=== PATIENT | male | born 1985 | race Two or more races ===

== ENCOUNTER → 2020-01-27 10:32 | Outpatient (BNVA) | payer OTHER, SELFPAY | PROVIDERS: PCP Internal Medicine; Visit Provider Urology | DX: Z30.2 Encounter for sterilization (principal); F41.8 Other specified anxiety disorders | CPT/HCPCS: 55250 ==

== ENCOUNTER → 2020-02-09 15:29 | Outpatient (BNVA) | payer OTHER, SELFPAY | PROVIDERS: PCP Internal Medicine; Visit Provider Urology | DX: Z76.89 Persons encountering health services in other specified circumstances (principal) | CPT/HCPCS: 99212 ==

== ENCOUNTER 2020-04-24 10:13 | Emergency (ER) | payer OTHER, SELFPAY ==
[2020-04-24 10:58] VITALS: BP 158/95; PULSE 93; RESP 16; TEMP 36.2; O2SAT 100; BMI 28.5
== END 2020-04-24 18:37 | disposition left against medical advice (07) ==
PROVIDERS: Emergency Provider Emergency Medicine
DX: R42 Dizziness and giddiness (principal)
CPT/HCPCS: 99282; 99283

== ENCOUNTER 2020-09-18 08:10 | Outpatient (REF) | payer OTHER, SELFPAY ==
--- NOTE | ~2020-09-18 | XR_ITS ---
EXAMINATION: XR WRISTS, BILATERAL WRISTS XR CERVICAL SPINE CLINICAL INFORMATION: Pain COMPARISON: None TECHNIQUE: 4 views of each wrist and three-view cervical spine FINDINGS: 4 views of the left wrist do not demonstrate any evidence of acute fracture or dislocation. Joint spaces are maintained. No significant degenerative changes noted. No soft tissue swelling. 4 views of the right wrist do not demonstrate any evidence of acute fracture or dislocation. Joint spaces maintained. No erosive changes. Three-view cervical spine study does not demonstrate any abnormal prevertebral soft tissue swelling. No acute fractures identified. Disc spaces are maintained. There is minimal spurring seen at the C6 level. XR/XR wrist LT 2V IMPRESSION: No significant abnormality of either the right or left wrist identified. No significant cervical spine bony abnormality seen.
--- NOTE | ~2020-09-18 | XR_ITS ---
EXAMINATION: XR WRISTS, BILATERAL WRISTS XR CERVICAL SPINE CLINICAL INFORMATION: Pain COMPARISON: None TECHNIQUE: 4 views of each wrist and three-view cervical spine FINDINGS: 4 views of the left wrist do not demonstrate any evidence of acute fracture or dislocation. Joint spaces are maintained. No significant degenerative changes noted. No soft tissue swelling. 4 views of the right wrist do not demonstrate any evidence of acute fracture or dislocation. Joint spaces maintained. No erosive changes. Three-view cervical spine study does not demonstrate any abnormal prevertebral soft tissue swelling. No acute fractures identified. Disc spaces are maintained. There is minimal spurring seen at the C6 level. XR/XR wrist RT 2V IMPRESSION: No significant abnormality of either the right or left wrist identified. No significant cervical spine bony abnormality seen.
--- NOTE | ~2020-09-18 | XR_ITS ---
EXAMINATION: XR WRISTS, BILATERAL WRISTS XR CERVICAL SPINE CLINICAL INFORMATION: Pain COMPARISON: None TECHNIQUE: 4 views of each wrist and three-view cervical spine FINDINGS: 4 views of the left wrist do not demonstrate any evidence of acute fracture or dislocation. Joint spaces are maintained. No significant degenerative changes noted. No soft tissue swelling. 4 views of the right wrist do not demonstrate any evidence of acute fracture or dislocation. Joint spaces maintained. No erosive changes. Three-view cervical spine study does not demonstrate any abnormal prevertebral soft tissue swelling. No acute fractures identified. Disc spaces are maintained. There is minimal spurring seen at the C6 level. XR/XR cervical spine 2V IMPRESSION: No significant abnormality of either the right or left wrist identified. No significant cervical spine bony abnormality seen.
[2020-09-18 10:04] LABS: MANUAL DIFF FLAG NO
[2020-09-18 10:06] LABS: Basophils Percent Auto 0.4 % (0-2); Eosinophils Absolute Auto 0.2 X10*3/uL (0.0-0.4); Eosinophils Percent Auto 2.6 % (0-4); Hematocrit 42.3 % (42-52); Hemoglobin 13.8 g/dl (14.0-18.0); Imm Gran Abs Auto 0.02 X10*3/uL (0.00-0.03); Imm Gran Pct Auto 0.3 % (0.0-0.4); Lymphocytes Absolute Auto 2.1 X10*3/uL (1.2-4.9); Lymphocytes Percent Auto 27.6 % (20-40); Mean Corpuscular HGB Conc 32.6 g/dl (31.0-36.0); Mean Corpuscular Hemoglobin 29.8 pg (27.0-33.0); Mean Corpuscular Volume 91.4 fL (80-98); Mean Platelet Volume 11.1 fL (9.4-12.4); Monocytes Absolute Auto 0.5 X10*3/uL (0.1-1.2); Neutrophils Absolute Auto 4.8 X10*3/uL (2.0-8.3); Neutrophils Percent Auto 62.1 % (45-73); Platelet Count 283 X10*3/uL (160-400); Red Blood Count 4.63 X10*6/uL (4.60-5.80); Red Cell Distribution Width 13.1 % (11.0-16.0); White Blood Count 7.7 X10*3/uL (4.8-10.8)
[2020-09-18 10:30] LABS: Alanine Aminotransferase 22 U/L (0-40); Albumin Level 4.3 g/dL (3.5-5.0); Alkaline Phosphatase 103 U/L (39-117); Anion Gap 11 (12-20); Aspartate Amino Transferase 20 U/L (5-37); Blood Urea Nitrogen 8 mg/dL (9-16); C Reactive Protein 1.54 mg/dL (< or = 0.50); Calcium 9.8 mg/dL (8.4-10.2); Carbon Dioxide 28 mmol/L (22-29); Chloride 105 mmol/L (96-108); Estimated Glomerular Filt Rate > 60; Glucose Random 88 mg/dL (60-115); Potassium 3.9 mmol/L (3.3-5.1); Sodium 140 mmol/L (135-145); Total Protein 7.3 g/dL (6.5-8.0)
[2020-09-18 10:43] LABS: Thyroid Stimulating Hormone 1.86 uIU/mL (0.32-4.0)
[2020-09-18 10:49] LABS: Rheumatoid Factor < 15.0 IU/mL (<15.0)
[2020-09-18 11:23] LABS: Erythrocyte Sedimentation Rate 21 MM/HR (0-15)
[2020-09-20 08:57] LABS: Lyme Abs Screen <0.90 index
[2020-09-21 22:57] LABS: Cyclic Citrullinated Peptide <16 UNITS
[2020-09-26 14:01] LABS: Vitamin D 25-OH, D2 <4 ng/mL; Vitamin D 25-OH, D3 13 ng/mL; Vitamin D 25-OH, Total 13 ng/mL (30-100)
== END 2020-09-18 08:11 | disposition home or self-care (01) ==
LOC: HO.LAB 08:10
PROVIDERS: PCP Internal Medicine; Visit Provider Student in an Organized Health Care Education/Training Program
DX: M25.50 Pain in unspecified joint (principal); M51.36 Other intervertebral disc degeneration, lumbar region; Z88.8 Allergy status to other drugs, medicaments and biological substances; Z91.013 Allergy to seafood; Z87.891 Personal history of nicotine dependence; Z79.899 Other long term (current) drug therapy
CPT/HCPCS: 36415; 72040; 73100; 80053; 82306; 84443; 85025; 85652; 86140; 86200; 86431; 86617; 86618; 99202

== ENCOUNTER → 2020-10-24 14:12 | Outpatient (BNVA) | payer OTHER, SELFPAY | PROVIDERS: PCP Internal Medicine; Visit Provider Student in an Organized Health Care Education/Training Program | DX: M25.50 Pain in unspecified joint (principal); E55.9 Vitamin D deficiency, unspecified; R79.82 Elevated C-reactive protein (CRP) | CPT/HCPCS: 99212 ==

== ENCOUNTER 2021-01-05 16:13 | Emergency (ER) | payer OTHER, SELFPAY ==
[2021-01-05 17:05] VITALS: BP 160/80; PULSE 102; RESP 16; TEMP 36.6; O2SAT 100; BMI 26.3
--- NOTE | 2021-01-05 17:06 | ED.URI ---
HPI - URI/Sore Throat General Chief Complaint: General Medical Stated Complaint: Flu like symptoms Time Seen by Provider: 01/05/21 17:05 Source: patient Mode of arrival: ambulatory Limitations: no limitations History of Present Illness HPI Narrative: 35 y/o male with history of asthma, insomnia, chronic low back pain, chronic joint pain who presents to the ED c/o 2 days of headaches, body aches, sore throat and chills. He has a cough as well that is keeping him up at night. He is vaccinated against COVID-19. He has had no known COVID-19 exposures. MD elicited complaint: cough and sore throat Onset (ago): day(s) (2) Consistency: constant Severity: moderate Description of mucous: clear Able to tolerate fluids by mouth: Yes Exacerbating factors: nothing Relieving factors: OTC cold medicine Associated symptoms: chills, headache, nasal congestion, sore throat and cough Treatments prior to arrival: none Related Data Previous Rx's Medication Instructions Recorded albuterol sulfate 90 mcg/actuation 2 puff PO Q6H PRN 30 Days #6.7 g 02/13/20 aerosol inhaler epinephrine 0.3 mg/0.3 mL 0.3 mg IM Q10M PRN 30 Days #1 ea 03/13/20 injection, auto-injector (EpiPen 2-Jovani) alprazolam 0.5 mg tablet 0.5 mg PO BID PRN 30 Days #60 tab 07/11/20 escitalopram oxalate 10 mg tablet 10 mg PO BEDTIME 90 Days #90 tab 07/11/20 nebulizers #1 ea 07/11/20 omeprazole 40 mg capsule,delayed 40 mg PO DAILY 90 Days #90 cap 07/11/20 release fluticasone propionate 44 1 puff INHALATION BID 30 Days 10/22/20 mcg/actuation HFA aerosol inhaler #10.6 g (Flovent HFA) oxycodone 10 mg tablet 10 mg PO Q8H PRN 30 Days #90 tab 12/18/20 lactulose 10 gram/15 mL oral 10 g PO BEDTIME PRN 30 Days #237 ml 12/20/20 solution albuterol sulfate 2.5 mg INHALATION TID PRN 30 Days 01/02/21 #225 ml azithromycin 250 mg tablet See Rx Instructions .ROUTE 01/05/21 (Zithromax Z-Jovani) .COMPLEX #6 tab cetirizine 10 mg tablet (Zyrtec) 10 mg PO DAILY #14 tab 01/05/21 fluticasone propionate 50 1 spray INTRANASAL BID #16 g 01/05/21 mcg/actuation nasal spray,suspension (Flonase Allergy Relief) Allergies Allergy/AdvReac Type Severity Reaction Status Date / Time prednisone [PREDNISONE] Allergy Mild RASH Verified 10/24/20 14:20 Motrin Allergy Unknown abdominal Verified 10/24/20 14:20 pain seafood Allergy Unknown Unknown Verified 10/24/20 14:20 tramadol [TRAMADOL] Allergy Unknown AGITATION, Verified 10/24/20 14:20 hallucinations, hallucunations Review of Systems Review of Systems: Constitutional: No Fever, + Chills ENT/Mouth: + sore throat, No Rhinorrhea Cardiovascular: No Chest Pain, No SOB Respiratory: + Cough, No Sputum, No Wheezing, No dyspnea Gastrointestinal: No Nausea, No Vomiting, No Diarrhea, No abdominal Pain Genitourinary: No Dysuria Musculoskeletal: + joint pain, + Myalgias Skin: No Skin Lesions, No rash Neuro: No Weakness, No Numbness, No Dizziness, + Headache Heme/Lymph: No Bruising, No Lymphadenopathy PMFSH Past Medical History Medical History Anxiety Asthma Insomnia Lumbar degenerative disc disease Polyarthralgia Surgical History No pertinent past surgical history Family History Family History Father HTN (hypertension) Mother No problems noted. Paternal Aunt Colon cancer Family/Other FH: mental illness Social History Social History (Updated 10/24/20 @ 14:21 by Kvng Ayala LPN) Alcohol intake: never Patient Tobacco Use Status: Current everyday Tobacco user Tobacco use type: Cigarette Cigarettes Per Day: 3 Years Smoked: 1 Advance Directives: No Advance Directives Information Provided: No Physical Exam Vital Signs: Vital Signs: Last Vital Signs Temp 97.8 F 01/05/21 17:05 Pulse 102 H 01/05/21 17:05 Resp 16 01/05/21 17:05 BP 160/80 H 09/11/21 17:05 Pulse Ox 100 01/05/21 17:05 Body Mass Index 26.3 Appearance: Alert. Oriented X3. No acute distress. Eyes: Pupils equal, round and reactive to light. ENT: Posterior oropharynx with moderate generalized erythema, mild tonsillar swelling, no exudates, uvula midline, moist mucus membranes. normal TM's bilaterally. nasal turbinates are erythematous and swollen bilaterally, clear nasal discharge Neck: Normal inspection. Neck supple. CVS: Normal heart rate and rhythm. Pulses normal. Respiratory: No respiratory distress. Breath sounds normal. Skin: Skin warm and dry. Normal skin color. Normal skin turgor. No rashes. Extremities: No lower extremity edema. Neuro: Oriented X 3. Nonfocal Course Course Course Narrative: 35 y/o male presenting with sore throat, body aches and headaches for the last couple of days. He appears non-toxic. HR 102 on arrival without fever, likely pain and anxiety related. He is nervous about COVID testing. Strep and COVID swabs sent. Reevaluation(s) Reevaluation #1: Strep and COVID negative. Most likely viral etiology. Nontoxic and appears well. Stable for d/c home with supportive care. MDM - URI/Sore Throat Lab Data Labs: Lab Results 01/05/21 01/05/21 Range/Units 17:13 17:13 COVID-19 (TERRI) Negative (Negative) COVID-19 Clin Com See Note S. pyogenes GrpA LEONOR Negative (Negative) Critical Care Time Critical Care Time Critical Care Time: No Discharge Plan Discharge Clinical Impression: Acute viral syndrome Patient Disposition: Home, Self-Care Instructions: Viral Syndrome (ED) Additional Instructions: Your COVID and Strep tests were negative. Take the prescribed medications as directed. Rest. Drink plenty of fluids. Take over the counter cold/flu medications as needed for your symptoms. Take Tylenol and/or Motrin as needed for fevers and body aches. Follow up with your doctor this week. If you develop new or worsening symptoms call 911 or come back to the ER for further evaluation. Prescriptions: New fluticasone propionate [Flonase Allergy Relief] 50 mcg/actuation spray,suspension 1 spray intranasal BID Qty: 16 RF: 0 azithromycin [Zithromax Z-Jovani] 250 mg tablet See Rx Instructions .ROUTE .COMPLEX Qty: 6 RF: 0 cetirizine [Zyrtec] 10 mg tablet 10 mg PO DAILY Qty: 14 RF: 0 No Action albuterol sulfate 90 mcg/actuation HFA aerosol inhaler 2 puff PO Q6H PRN (Reason: shortness of breath or wheezing) 30 Days Qty: 6.7 RF: 6 Flovent HFA 44 mcg/actuation HFA aerosol inhaler 1 puff inhalation BID 30 Days Qty: 10.6 RF: 6 oxycodone 10 mg tablet 10 mg PO Q8H PRN (Reason: pain) 30 Days Qty: 90 RF: 0 lactulose 10 gram/15 mL solution 10 g PO BEDTIME PRN (Reason: constipation) 30 Days Qty: 237 RF: 3 albuterol sulfate 2.5 mg /3 mL (0.083 %) solution for nebulization 2.5 mg inhalation TID PRN (Reason: bronchospasm) 30 Days Qty: 225 RF: 6 (DME) nebulizers Misc See Rx Instructions .ROUTE .MEDSUPPLY Qty: 1 RF: 0 alprazolam 0.5 mg tablet 0.5 mg PO BID PRN (Reason: anxiety) 30 Days Qty: 60 RF: 0 omeprazole 40 mg capsule,delayed release(DR/EC) 40 mg PO DAILY 90 Days Qty: 90 RF: 3 escitalopram oxalate 10 mg tablet 10 mg PO BEDTIME 90 Days Qty: 90 RF: 0 epinephrine [EpiPen 2-Jovani] 0.3 mg/0.3 mL auto-injector 0.3 mg IM Q10M PRN (Reason: anaphylaxis) 30 Days Qty: 1 RF: 3 Referrals: Adriana Paulson MD [Primary Care Provider] - 1 week
[2021-01-05 17:27] LABS: Strep A Nucleic Acid Negative (Negative)
[2021-01-05 18:30] LABS: COVID-19 Test Negative (Negative); IDNOW Serial# 9DD0AD1C
== END 2021-01-05 19:03 | disposition home or self-care (01) ==
PROVIDERS: Physician Assistant; Emergency Provider Emergency Medicine Emergency Medical Services; PCP Internal Medicine
DX: B34.9 Viral infection, unspecified (principal); Z20.822 Contact with and (suspected) exposure to COVID-19; J02.9 Acute pharyngitis, unspecified
CPT/HCPCS: 36415; 87635; 87651; 99283

== ENCOUNTER 2021-06-12 22:23 | Emergency (ER) | payer OTHER, SELFPAY ==
[2021-06-12 22:39] VITALS: BP 160/98; PULSE 83; RESP 18; TEMP 36.8; O2SAT 99; BMI 26.9
--- NOTE | 2021-06-12 22:49 | ED.GENADULT ---
HPI - General Adult General Chief complaint: General Medical Stated complaint: constipated x 2wks Time Seen by Provider: 06/12/21 22:49 Source: patient Mode of arrival: ambulatory Limitations: no limitations History of Present Illness HPI narrative: Patient with history of chronic constipation on oxycodone for chronic back pain taking lactulose any small bowel movement last bowel movement was 2 days ago diffuse abdominal discomfort no nausea or vomiting Related Data Previous Rx's Medication Instructions Recorded epinephrine 0.3 mg/0.3 mL 0.3 mg (0.3 mL) IM Q10M PRN 30 03/13/20 injection, auto-injector (EpiPen Days #1 ea 2-Jovani) alprazolam 0.5 mg tablet 0.5 mg PO BID PRN 30 Days #60 tab 07/11/20 escitalopram oxalate 10 mg tablet 10 mg PO BEDTIME 90 Days #90 tab 07/11/20 nebulizers #1 ea 07/11/20 fluticasone propionate 44 1 puff INHALATION BID 30 Days 10/22/20 mcg/actuation HFA aerosol inhaler #10.6 g (Flovent HFA) albuterol sulfate 2.5 mg (3 mL) INHALATION TID PRN 01/02/21 30 Days #225 ml cetirizine 10 mg tablet (Zyrtec) 10 mg PO DAILY #14 tab 01/05/21 fluticasone propionate 50 1 spray INTRANASAL BID #16 g 01/05/21 mcg/actuation nasal spray,suspension (Flonase Allergy Relief) albuterol sulfate 90 mcg/actuation 2 puff PO Q6H PRN 30 Days #6.7 g 01/29/21 aerosol inhaler pantoprazole 40 mg tablet,delayed 40 mg PO DAILY 90 Days #90 tab 03/13/21 release lactulose 10 gram/15 mL oral 10 g (15 mL) PO BEDTIME PRN 30 05/11/21 solution Days #237 ml oxycodone 10 mg tablet 10 mg PO Q8H PRN 30 Days #90 tab 06/03/21 bisacodyl 5 mg tablet,delayed 10 mg PO BEDTIME PRN #30 tab 06/12/21 release (Dulcolax (bisacodyl)) Allergies Allergy/AdvReac Type Severity Reaction Status Date / Time Motrin Allergy Intermediate abdominal Verified 03/13/21 09:57 pain seafood Allergy Intermediate throat Verified 03/13/21 09:57 swelling tramadol [TRAMADOL] Allergy Intermediate AGITATION, Verified 03/13/21 09:57 hallucinations, hallucunations prednisone [PREDNISONE] Allergy Mild RASH Verified 03/13/21 09:57 Review of Systems Review of Systems: Yes all other systems are reviewed and are negative [facility] Past Medical History Medical History Anxiety Asthma Epigastric pain Insomnia Lumbar degenerative disc disease Polyarthralgia Surgical History No pertinent past surgical history Family History Family History Father HTN (hypertension) Mother No problems noted. Paternal Aunt Colon cancer Family/Other FH: mental illness Social History Social History Housing: Apartment Alcohol intake: never Patient Tobacco Use Status: Current everyday Tobacco user Tobacco use type: Cigarette Cigarettes Per Day: 3 Years Smoked: 1 e-Cigarette/Vaping Use: Never Used Second Hand Smoke Exposure: No Advance Directives: No Advance Directives Information Provided: No service: No Current occupational status: employed Current occupational exposures/hazards: No Physical Exam ED Vital Signs: Vital Signs - 24 hr 06/12/21 22:39 Temperature 98.2 F Pulse Rate 83 Respiratory Rate 18 Blood Pressure 160/98 H Pulse Oximetry 99 BMI result Body Mass Index 26.9 Appearance: Alert. Oriented X3. No acute distress. ENT: Pharynx normal. Oral Mucosa moist Neck: Normal inspection. Neck supple. CVS: Normal heart rate and rhythm. Pulses normal. Respiratory: No respiratory distress. Equal air entry bilateral, Abdomen: Soft and nontender. Bowel sounds are present, no mass palpable, no CVA tenderness rectal: Empty rectum no hard stool palpable Skin: Skin warm and dry. Normal skin color. Normal skin turgor. Extremities: No lower extremity edema. No calf tenderness Neuro: Oriented X 3. Discharge Plan Discharge Clinical Impression: Chronic constipation Patient Disposition: Home, Self-Care Instructions: Constipation (ED) Additional Instructions: Stop taking caffeine drinks Drink plenty of fluids Take 2 tablets Dulcolax every night along with lactulose and follow with PCP Prescriptions: New bisacodyl [Dulcolax (bisacodyl)] 5 mg tablet,delayed release (DR/EC) 10 mg PO BEDTIME PRN (Reason: constipation) Qty: 30 0RF No Action Flovent HFA 44 mcg/actuation HFA aerosol inhaler 1 puff inhalation BID 30 Days Qty: 10.6 6RF Rx Instructions: administer with spacer albuterol sulfate 2.5 mg /3 mL (0.083 %) solution for nebulization 2.5 mg inhalation TID PRN (Reason: bronchospasm) 30 Days Qty: 225 6RF albuterol sulfate 90 mcg/actuation HFA aerosol inhaler 2 puff PO Q6H PRN (Reason: shortness of breath or wheezing) 30 Days Qty: 6.7 6RF lactulose 10 gram/15 mL solution 10 g PO BEDTIME PRN (Reason: constipation) 30 Days Qty: 237 3RF oxycodone 10 mg tablet 10 mg PO Q8H PRN (Reason: pain) 30 Days Qty: 90 0RF fluticasone propionate [Flonase Allergy Relief] 50 mcg/actuation spray,suspension 1 spray intranasal BID Qty: 16 0RF Rx Instructions: administer into each nostril cetirizine [Zyrtec] 10 mg tablet 10 mg PO DAILY Qty: 14 0RF (DME) nebulizers Misc See Rx Instructions .ROUTE .MEDSUPPLY Qty: 1 0RF Rx Instructions: As directed alprazolam 0.5 mg tablet 0.5 mg PO BID PRN (Reason: anxiety) 30 Days Qty: 60 0RF escitalopram oxalate 10 mg tablet 10 mg PO BEDTIME 90 Days Qty: 90 0RF epinephrine [EpiPen 2-Jovani] 0.3 mg/0.3 mL auto-injector 0.3 mg IM Q10M PRN (Reason: anaphylaxis) 30 Days Qty: 1 3RF Rx Instructions: for 2 doses pantoprazole 40 mg tablet,delayed release (DR/EC) 40 mg PO DAILY 90 Days Qty: 90 0RF Interventions: ED Discharge Assessment Last Done: 06/12/21 23:14 Discharge Date/Time: 06/12/21 23:15
[2021-06-12] MEDS: bisacodyL 5 MG TABLET.DR 10 MG PO (23:08)
[2021-06-12] MEDS: Magnesium Citrate 300 ML SOLUTION PO (23:09)
== END 2021-06-12 23:15 | disposition home or self-care (01) ==
PROVIDERS: Emergency Provider Internal Medicine; PCP Internal Medicine
DX: K59.00 Constipation, unspecified (principal); G89.29 Other chronic pain; F17.200 Nicotine dependence, unspecified, uncomplicated; Z79.891 Long term (current) use of opiate analgesic
CPT/HCPCS: 99282; 99283

== ENCOUNTER → 2021-07-12 11:38 | Outpatient (BNVA) | payer OTHER, SELFPAY | PROVIDERS: PCP Internal Medicine; Referring Provider Internal Medicine; Visit Provider Nurse Practitioner Family | DX: K61.1 Rectal abscess (principal); K21.9 Gastro-esophageal reflux disease without esophagitis; K59.04 Chronic idiopathic constipation | CPT/HCPCS: 99202 ==

== ENCOUNTER 2021-08-08 07:50 | Outpatient (REF) | payer OTHER, SELFPAY ==
[2021-08-08 09:19] LABS: Alanine Aminotransferase 34 U/L (0-40); Albumin Level 4.5 g/dL (3.5-5.0); Alkaline Phosphatase 98 U/L (39-117); Anion Gap 12 (12-20); Aspartate Amino Transferase 28 U/L (5-37); Bilirubin Total 1.2 mg/dL (0.0-1.0); Blood Urea Nitrogen 8 mg/dL (9-16); C Reactive Protein 1.06 mg/dL (< or = 0.50); Calcium 10.2 mg/dL (8.4-10.2); Carbon Dioxide 28 mmol/L (22-29); Chloride 105 mmol/L (96-108); Cholesterol 227 mg/dL; Estimated Glomerular Filt Rate > 60; Glucose Fasting 89 mg/dL (60-99); HDL Cholesterol 37 mg/dL; LDL Cholesterol Calculated 159 mg/dl; Potassium 4.2 mmol/L (3.3-5.1); Sodium 141 mmol/L (135-145); Total Protein 7.6 g/dL (6.5-8.0); Triglycerides 157 mg/dL
[2021-08-08 09:30] LABS: Erythrocyte Sedimentation Rate 10 MM/HR (0-15)
[2021-08-08 09:40] LABS: Vitamin D 25-OH Total 12.5 ng/mL (>30)
[2021-08-15 21:56] LABS: HLA B27 Negative (Negative)
== END 2021-08-08 07:51 | disposition home or self-care (01) ==
LOC: HO.LAB 07:50
PROVIDERS: Absent Provider Internal Medicine; PCP Internal Medicine; Visit Provider Student in an Organized Health Care Education/Training Program
DX: R79.82 Elevated C-reactive protein (CRP) (principal); E55.9 Vitamin D deficiency, unspecified; M25.50 Pain in unspecified joint; E66.3 Overweight
CPT/HCPCS: 36415; 80053; 80061; 82306; 85652; 86140; 86812

== ENCOUNTER 2022-02-26 18:33 | Emergency (ER) | payer OTHER, SELFPAY ==
[2022-02-26 20:16] VITALS: BP 126/84; PULSE 73; RESP 18; TEMP 37.4; O2SAT 100; BMI 23.1
[2022-02-26 20:42] LABS: MANUAL DIFF FLAG NO
[2022-02-26 20:45] LABS: Basophils Absolute Auto 0.1 X10*3/uL (0.0-0.2); Basophils Percent Auto 0.4 % (0-2); Eosinophils Absolute Auto 0.1 X10*3/uL (0.0-0.4); Eosinophils Percent Auto 0.8 % (0-4); Hematocrit 46.6 % (42.0-52.0); Hemoglobin 15.4 g/dl (14.0-18.0); Imm Gran Abs Auto 0.05 X10*3/uL (0.00-0.03); Imm Gran Pct Auto 0.4 % (0.0-0.4); Lymphocytes Absolute Auto 1.6 X10*3/uL (1.2-4.9); Lymphocytes Percent Auto 11.9 % (20-40); Mean Corpuscular Hemoglobin 29.7 pg (27.0-33.0); Monocytes Absolute Auto 0.6 X10*3/uL (0.1-1.2); Monocytes Percent Auto 4.4 % (2-11); Neutrophils Absolute Auto 10.9 x10*3/uL (2.0-8.3); Neutrophils Percent Auto 82.1 % (45-73); Platelet Count 257 X10*3/uL (160-400); Red Blood Count 5.18 X10*6/uL (4.60-5.80); Red Cell Distribution Width 13.9 % (11.0-16.0); White Blood Count 13.3 X10*3/uL (4.8-10.8)
[2022-02-26 20:58] LABS: Alanine Aminotransferase 31 U/L (0-40); Albumin Level 4.4 g/dL (3.5-5.0); Alkaline Phosphatase 100 U/L (39-117); Anion Gap 12 (12-20); Aspartate Amino Transferase 25 U/L (5-37); Bilirubin Total 0.7 mg/dL (0.0-1.0); Blood Urea Nitrogen 8 mg/dL (9-16); Calcium 9.7 mg/dL (8.4-10.2); Carbon Dioxide 27 mmol/L (22-29); Chloride 105 mmol/L (96-108); Creatinine Clr Calc Pharmacy 115.6; Estimated Glomerular Filt Rate > 60; Glucose Random 76 mg/dL (60-115); Potassium 4.2 mmol/L (3.3-5.1); Sodium 140 mmol/L (135-145); Total Protein 7.2 g/dL (6.5-8.0)
== END 2022-02-27 01:33 | disposition left against medical advice (07) ==
PROVIDERS: Emergency Provider Emergency Medicine; PCP Internal Medicine
DX: R42 Dizziness and giddiness (principal); R13.10 Dysphagia, unspecified
CPT/HCPCS: 36415; 80053; 85025; 99281; 99283

== ENCOUNTER 2022-06-13 23:48 | Emergency (ER) | payer OTHER, SELFPAY ==
[2022-06-14 00:03] VITALS: BP 134/55; PULSE 83; RESP 20; TEMP 36.6; O2SAT 98; BMI 27.8
[2022-06-14 00:20] LABS: Hemoglobin 14.9 g/dl (14.0-18.0); Mean Corpuscular HGB Conc 33.1 g/dl (31.0-36.0); Mean Corpuscular Hemoglobin 30.1 pg (27.0-33.0); Mean Corpuscular Volume 90.9 fL (80.0-98.0); Mean Platelet Volume 10.7 fL (9.4-12.4); Platelet Count 249 X10*3/uL (160-400); Red Blood Count 4.95 X10*6/uL (4.60-5.80); Red Cell Distribution Width 13.6 % (11.0-16.0); White Blood Count 14.4 X10*3/uL (4.8-10.8)
[2022-06-14 00:39] LABS: Alanine Aminotransferase 46 U/L (0-40); Albumin Level 4.3 g/dL (3.5-5.0); Alkaline Phosphatase 118 U/L (39-117); Anion Gap 14 (12-20); Aspartate Amino Transferase 41 U/L (5-37); Bilirubin Total 1.3 mg/dL (0.0-1.0); Blood Urea Nitrogen 12 mg/dL (9-16); Calcium 9.5 mg/dL (8.4-10.2); Carbon Dioxide 27 mmol/L (22-29); Chloride 104 mmol/L (96-108); Creatinine Clr Calc Pharmacy 106.9; Estimated Glomerular Filt Rate > 60; Glucose Random 95 mg/dL (60-115); Potassium 5.2 mmol/L (3.3-5.1); Sodium 140 mmol/L (135-145); Total Protein 7.5 g/dL (6.5-8.0)
--- NOTE | 2022-06-14 02:42 | ED.SKABFB ---
HPI - Skin/Abscess/Foreign Bdy General Chief complaint: Skin/Abscess/Foreign Body Stated complaint: anal cyst Time Seen by Provider: 06/14/22 02:21 Source: patient Mode of arrival: ambulatory Limitations: no limitations History of Present Illness HPI narrative: Patient complaining of swelling of L gluteal area for last 5- 6 days with history of same in the past no fever no chills painful to sit and defecate no fever no chills Related Data Previous Rx's Medication Instructions Recorded epinephrine 0.3 mg/0.3 mL 0.3 mg (0.3 mL) IM Q10M PRN 03/13/20 injection, auto-injector (EpiPen anaphylaxis 30 days #1 ea 2-Jovani) alprazolam 0.5 mg tablet 0.5 mg PO BID PRN anxiety 30 days 07/11/20 #60 tabs escitalopram oxalate 10 mg tablet 10 mg PO BEDTIME 90 days #90 tabs 07/11/20 nebulizers #1 ea 07/11/20 cetirizine 10 mg tablet (Zyrtec) 10 mg PO DAILY #14 tabs 01/05/21 fluticasone propionate 50 1 spray intranasal BID #16 grams 01/05/21 mcg/actuation nasal spray,suspension (Flonase Allergy Relief) bisacodyl 5 mg tablet,delayed 10 mg PO BEDTIME constipation #90 07/12/21 release (Dulcolax (bisacodyl)) tabs albuterol sulfate 90 mcg/actuation 2 puff PO Q6H PRN shortness of 08/13/21 aerosol inhaler breath or wheezing 30 days #6.7 grams fluticasone propionate 44 1 puff inhalation BID 30 days 11/20/21 mcg/actuation HFA aerosol inhaler #10.6 grams (Flovent HFA) docusate sodium 100 mg capsule 100 mg PO BEDTIME #30 caps 11/22/21 pantoprazole 40 mg tablet,delayed 40 mg PO DAILY 90 days #90 tabs 01/29/22 release cholecalciferol (vitamin D3) 50 50 mcg PO DAILY 90 days #90 caps 03/04/22 mcg (2,000 unit) capsule albuterol sulfate 2.5 mg/3 mL 2.5 mg (3 mL) inhalation TID PRN 03/25/22 (0.083 %) solution for nebulization bronchospasm 30 days #225 mL oxycodone 10 mg tablet 10 mg PO Q8H PRN pain 30 days #90 06/02/22 tabs cephalexin 500 mg capsule 500 mg PO QID 10 days #40 caps 06/14/22 doxycycline hyclate 100 mg tablet 100 mg PO BID #20 tabs 06/14/22 oxycodone 5 mg tablet 5 mg PO Q6H PRN pain #20 tabs 06/14/22 Allergies Allergy/AdvReac Type Severity Reaction Status Date / Time ibuprofen [From Motrin] Allergy Intermediate Abdominal Verified 05/28/22 15:52 Pain seafood Allergy Intermediate throat Verified 01/29/22 13:18 swelling tramadol [TRAMADOL] Allergy Intermediate AGITATION, Verified 01/29/22 13:18 hallucinations, hallucunations prednisone [PREDNISONE] Allergy Mild RASH Verified 01/29/22 13:18 Review of Systems Review of Systems: Yes all other systems are reviewed and are negative PMFSH Past Medical History Medical History Anxiety Asthma Epigastric pain Hypovitaminosis D Insomnia Lumbar degenerative disc disease Overweight Polyarthralgia Right upper quadrant abdominal pain Surgical History No pertinent past surgical history Family History Family History Father HTN (hypertension) Mother No problems noted. Paternal Aunt Colon cancer Family/Other FH: mental illness Social History Social History Housing: Apartment Alcohol intake: never Patient Tobacco Use Status: Current everyday Tobacco user Tobacco use type: Cigarette Cigarettes Per Day: 7 Years Smoked: 1 e-Cigarette/Vaping Use: Never Used Second Hand Smoke Exposure: No Advance Directives: No service: No Current occupational status: employed Current occupational exposures/hazards: No Cognitive needs: No Hearing needs: No Vision needs: No Physical Exam Vital Signs: Vital Signs: Last Vital Signs Temp 98 F 06/14/22 00:03 Pulse 83 06/14/22 00:03 Resp 20 06/14/22 00:03 BP 134/55 L 06/14/22 00:03 Pulse Ox 98 06/14/22 00:03 O2 Del Method 02/18/23 00:03 BMI result Body Mass Index 27.8 Appearance: Alert. Oriented X3. No acute distress. ENT: Pharynx normal. Oral Mucosa moist Neck: Normal inspection. Neck supple. CVS: Normal heart rate and rhythm. Pulses normal. Respiratory: No respiratory distress. Equal air entry bilateral, Abdomen: Soft and nontender. Bowel sounds are present, no mass palpable, no CVA tenderness Skin: Skin warm and dry. Normal skin color. Normal skin turgor. Extremities: No lower extremity edema. No calf tenderness , left gluteal abscess Neuro: Oriented X 3. Back/Spine/Pelvis: Back/spine/pelvis image: 1. Left gluteal abscess 5 x 5 cm with induration and fluctuancy Medications Administered Discontinued Medications Generic Name Dose Route Start Last Admin Trade Name Freq PRN Reason Stop Dose Admin Cephalexin HCl 500 mg 06/14/22 02:40 06/14/22 02:53 Cephalexin 500 Mg Capsule PO 06/14/22 02:41 500 mg ONCE ONE Administration Doxycycline Monohydrate 100 mg 06/14/22 02:40 06/14/22 02:54 Doxycycline Monohydrate 100 Mg Capsule PO 06/14/22 02:41 100 mg ONCE ONE Administration Oxycodone HCl 5 mg 06/14/22 02:47 06/14/22 02:53 Oxycodone Hcl Immed Release 5 Mg Tablet PO 06/14/22 02:48 5 mg ONCE ONE Administration Medical Decision Making Lab Data 06/14/22 00:15 06/14/22 00:15 Labs: Lab Results 06/14/22 06/14/22 Range/Units 00:15 00:15 WBC 14.4 H (4.8-10.8) X10*3/uL RBC 4.95 (4.60-5.80) X10*6/uL Hgb 14.9 (14.0-18.0) g/dl Hct 45.0 (42.0-52.0) % MCV 90.9 (80.0-98.0) fL MCH 30.1 (27.0-33.0) pg MCHC 33.1 (31.0-36.0) g/dl RDW 13.6 (11.0-16.0) % Plt Count 249 (160-400) X10*3/uL MPV 10.7 (9.4-12.4) fL Absolute Nucleated RBC 0.000 (0.0-0.012) X10*3/uL Nucleated RBC % (auto) 0.0 (0.0-0.2) /100WBC Sodium 140 (135-145) mmol/L Potassium 5.2 H D (3.3-5.1) mmol/L Chloride 104 (96-108) mmol/L Carbon Dioxide 27 (22-29) mmol/L Anion Gap 14 (12-20) BUN 12 (9-16) mg/dL Creatinine 1.10 (0.5-1.4) mg/dL Estim Creat Clear Calc 106.9 Estimated GFR > 60 Random Glucose 95 (60-115) mg/dL Calcium 9.5 (8.4-10.2) mg/dL Total Bilirubin 1.3 H (0.0-1.0) mg/dL AST 41 H (5-37) U/L ALT 46 H (0-40) U/L Alkaline Phosphatase 118 H (39-117) U/L Total Protein 7.5 (6.5-8.0) g/dL Albumin 4.3 (3.5-5.0) g/dL Procedures Abscess I/D Site: rich-rectal (Left gluteal) Side (if applicable): left Local Anesthetic: lidocaine 2% Amount of anesthesia used (mL): 10 Technique: incised with blade Amount of fluid expressed (mL): 20 Sent for culture/gram staining?: No Irrigation: No Packing used?: iodoform Discharge Plan Discharge Clinical Impression: Abscess of skin or subcutaneous tissue Patient Disposition: Home, Self-Care Instructions: Abscess Incision and Drainage (DC) Additional Instructions: Local care as advised Take antibiotic as prescribed Ibuprofen for pain Packing removal in 2 days Report to ER if increased swelling/ worsening of pain Prescriptions: New cephalexin 500 mg capsule 500 mg PO QID 10 Days Qty: 40 0RF doxycycline hyclate 100 mg tablet 100 mg PO BID Qty: 20 0RF oxycodone 5 mg tablet 5 mg PO Q6H PRN (Reason: pain) Qty: 20 0RF Rx Instructions: Partial Fill upon patient request. No Action albuterol sulfate 90 mcg/actuation HFA aerosol inhaler 2 puff PO Q6H PRN (Reason: shortness of breath or wheezing) 30 Days Qty: 6.7 6RF Flovent HFA 44 mcg/actuation HFA aerosol inhaler 1 puff inhalation BID 30 Days Qty: 10.6 6RF Rx Instructions: administer with spacer docusate sodium 100 mg capsule 100 mg PO BEDTIME Qty: 30 3RF cholecalciferol (vitamin D3) 50 mcg (2,000 unit) capsule 50 mcg PO DAILY 90 Days Qty: 90 1RF albuterol sulfate 2.5 mg /3 mL (0.083 %) solution for nebulization 2.5 mg inhalation TID PRN (Reason: bronchospasm) 30 Days Qty: 225 6RF oxycodone 10 mg tablet 10 mg PO Q8H PRN (Reason: pain) 30 Days Qty: 90 0RF fluticasone propionate [Flonase Allergy Relief] 50 mcg/actuation spray,suspension 1 spray intranasal BID Qty: 16 0RF Rx Instructions: administer into each nostril cetirizine [Zyrtec] 10 mg tablet 10 mg PO DAILY Qty: 14 0RF (DME) nebulizers Misc See Rx Instructions .ROUTE .MEDSUPPLY Qty: 1 0RF Rx Instructions: As directed alprazolam 0.5 mg tablet 0.5 mg PO BID PRN (Reason: anxiety) 30 Days Qty: 60 0RF escitalopram oxalate 10 mg tablet 10 mg PO BEDTIME 90 Days Qty: 90 0RF epinephrine [EpiPen 2-Jovani] 0.3 mg/0.3 mL auto-injector 0.3 mg IM Q10M PRN (Reason: anaphylaxis) 30 Days Qty: 1 3RF Rx Instructions: for 2 doses pantoprazole 40 mg tablet,delayed release (DR/EC) 40 mg PO DAILY 90 Days Qty: 90 0RF bisacodyl [Dulcolax (bisacodyl)] 5 mg tablet,delayed release (DR/EC) 10 mg PO BEDTIME Qty: 90 0RF Stand Alone Forms: Work/School Release Interventions: ED Discharge Assessment Last Done: 06/14/22 02:55 Discharge Date/Time: 06/14/22 02:58
[2022-06-14] MEDS: oxyCODONE HCl Immed Release 5 MG TABLET PO (02:53)
[2022-06-14] MEDS: cephALEXin 500 MG CAPSULE PO (02:53)
[2022-06-14] MEDS: Doxycycline Monohydrate 100 MG CAPSULE PO (02:54)
== END 2022-06-14 02:58 | disposition home or self-care (01) ==
PROVIDERS: Emergency Provider Internal Medicine; PCP Internal Medicine
DX: L02.215 Cutaneous abscess of perineum (principal); F17.210 Nicotine dependence, cigarettes, uncomplicated
CPT/HCPCS: 10060; 36415; 80053; 85027; 99283; 99284

== ENCOUNTER → 2022-06-18 09:03 | Outpatient (BNVA) | payer OTHER, SELFPAY | PROVIDERS: PCP Internal Medicine; Visit Provider Surgery | DX: L02.215 Cutaneous abscess of perineum (principal) | CPT/HCPCS: 99202 ==

== ENCOUNTER 2023-05-14 09:30 | Outpatient (REF) | payer OTHER, SELFPAY ==
[2023-05-14 10:31] LABS: Appearance Urine Clear; Color Urine Dark Yellow; Glucose Urine UA Negative (Negative); Leukocyte Esterase Urine Small (1+) (Negative); Nitrite Urine Negative (Negative); PH 5.5 (5.0-9.0); Specific Gravity - Urine >= 1.030 (1.005-1.025); UMIC TRIGGER UACC YES; Urine Blood Negative (Negative); Urine Ketones Trace mg/dL (Negative); Urine Protein Trace mg/dL (Neg-Trace)
[2023-05-14 10:44] LABS: Bacteria Urine None Seen (None Seen); RBC Urine 0-2 /HPF (0-2); UACC Culture Trigger YES; WBC Urine >50 /HPF (0-5)
== END 2023-05-14 09:31 | disposition home or self-care (01) ==
LOC: HO.LAB 09:30
PROVIDERS: PCP Internal Medicine; Visit Provider Internal Medicine
DX: R39.9 Unspecified symptoms and signs involving the genitourinary system (principal)
CPT/HCPCS: 81001; 87086

== ENCOUNTER 2023-05-18 14:02 | Emergency (ER) | payer OTHER, SELFPAY ==
[2023-05-18 14:17] VITALS: BP 134/76; PULSE 85; RESP 20; TEMP 36.6; O2SAT 98; BMI 25.8
--- NOTE | 2023-05-18 14:19 | ED_ITS ---
HPI - Male Genitourinary General Chief complaint: Urogenital-Male Stated complaint: UTI? Time Seen by Provider: 05/18/23 16:43 Source: patient Mode of arrival: ambulatory Limitations: no limitations History of Present Illness HPI Narrative: Patient is a 37-year-old male presenting to the emergency department with suprapubic abdominal pain and intermittent dysuria for the past week. States that he saw PCP for his symptoms, had urinalysis and was started on antibiotics for UTI however his symptoms have not improved. He denies fevers. Denies nausea, vomiting, diarrhea. Denies back or flank pain. Denies penile discharge. Denies rash, swelling, or mass to testicles. States that he does have unprotected intercourse with 1 partner but partner is not new. MD Complaint: dysuria Onset (ago): day(s) Duration: intermittent Location: abdomen Severity: moderate Quality: burning Relieving factors: none Exacerbating factors: urination Associated symptoms: Reports dysuria Related Data Previous Rx's Medication Instructions Recorded epinephrine 0.3 mg/0.3 mL 0.3 mg (0.3 mL) IM Q10M PRN 03/13/20 injection, auto-injector (EpiPen anaphylaxis 30 days #1 ea 2-Jovani) alprazolam 0.5 mg tablet 0.5 mg PO BID PRN anxiety 30 days 07/11/20 #60 tabs escitalopram oxalate 10 mg tablet 10 mg PO BEDTIME 90 days #90 tabs 07/11/20 nebulizers #1 ea 07/11/20 cetirizine 10 mg tablet (Zyrtec) 10 mg PO DAILY #14 tabs 01/05/21 fluticasone propionate 50 1 spray intranasal BID #16 grams 01/05/21 mcg/actuation nasal spray,suspension (Flonase Allergy Relief) bisacodyl 5 mg tablet,delayed 10 mg (2 x 5 mg) PO BEDTIME 07/12/21 release (Dulcolax (bisacodyl)) constipation #90 tabs docusate sodium 100 mg capsule 100 mg PO BEDTIME #30 caps 11/22/21 albuterol sulfate 2.5 mg/3 mL 2.5 mg (3 mL) inhalation TID PRN 03/25/22 (0.083 %) solution for nebulization bronchospasm 30 days #225 mL cephalexin 500 mg capsule 500 mg PO QID 10 days #40 caps 06/14/22 doxycycline hyclate 100 mg tablet 100 mg PO BID #20 tabs 06/14/22 nicotine 14 mg/24 hr daily 1 patch transdermal DAILY 28 days 08/26/22 transdermal patch #28 ea cholecalciferol (vitamin D3) 50 50 mcg PO DAILY 90 days #90 caps 11/20/22 mcg (2,000 unit) capsule albuterol sulfate 90 mcg/actuation 2 puff PO Q6H PRN shortness of 12/22/22 aerosol inhaler breath or wheezing 30 days #6.7 grams fluticasone propionate 44 1 puff inhalation BID 30 days 12/22/22 mcg/actuation HFA aerosol inhaler #10.6 grams (Flovent HFA) oxycodone 10 mg tablet 10 mg PO Q6H PRN pain 30 days #120 05/12/23 tabs pantoprazole 40 mg tablet,delayed 40 mg PO DAILY 90 days #90 tabs 05/12/23 release ciprofloxacin HCl 500 mg tablet 500 mg PO BID #14 tabs 05/15/23 Allergies Allergy/AdvReac Type Severity Reaction Status Date / Time ibuprofen [From Motrin] Allergy Intermediate Abdominal Verified 05/18/23 14:16 Pain seafood Allergy Intermediate throat Verified 05/18/23 14:16 swelling tramadol [TRAMADOL] Allergy Intermediate AGITATION, Verified 05/18/23 14:16 hallucinations, hallucunations prednisone [PREDNISONE] Allergy Mild RASH Verified 05/18/23 14:16 Review of Systems 2 Review of Systems: As per HPI. Yes all other systems are reviewed and are negative Constitutional: Constitutional: Reports as per HPI [facility] Past Medical History Medical History (Updated 05/18/23 @ 18:06 by Kayla Shaw NP) Perineal abscess Right upper quadrant abdominal pain Hypovitaminosis D Overweight Epigastric pain Insomnia Polyarthralgia Anxiety Lumbar degenerative disc disease Asthma Surgical History No pertinent past surgical history Family History Family History Father HTN (hypertension) Mother No problems noted. Paternal Aunt Colon cancer Family/Other FH: mental illness Social History Social History Housing: Apartment Alcohol intake: never Patient Tobacco Use Status: Current everyday Tobacco user Tobacco use type: Cigarette Cigarettes Per Day: 7 Years Smoked: 1 e-Cigarette/Vaping Use: Never Used Second Hand Smoke Exposure: No Advance Directives: No service: No Current occupational status: employed Current occupational exposures/hazards: No Cognitive needs: No Hearing needs: No Vision needs: No Physical Exam 2 Vital Signs: Vital Signs: Last Vital Signs Temp 98 F 05/18/23 14:17 Pulse 85 05/18/23 14:17 Resp 20 05/18/23 14:17 BP 134/76 05/18/23 14:17 Pulse Ox 98 05/18/23 14:17 O2 Del Method Room Air 05/18/23 14:17 BMI result Body Mass Index 25.8 Vital signs have been reviewed and appear to be correct. Blood pressure normal. Heart rate normal. Respiratory rate normal. Temperature normal. Oxygen saturation normal. Const: General: cooperative, healthy appearing and no acute distress O rientation/consciousness: oriented to person, oriented to place, oriented to time and patient oriented x3 Limitations: no limitations HEENT: Head: Yes normocephalic and Yes atraumatic Ears: external ears normal General nose exam: Normal external nose present Face and sinus: Yes face symmetric Mouth: oropharynx normal and moist mucous membranes T hroat: Yes uvula midline Eyes: Pupils: Equal, round and reactive pupils present Neck: Neck: Yes normal visual inspection and Yes supple Resp: Effort & Inspection: normal respiratory effort and able to speak in complete sentences Auscultation: clear to auscultation bilaterally Cardio: Rate: regular rate Rhythm: regular rhythm Heart sounds: S1 normal heart sound present and S2 normal heart sound present GI: Palpation (GI): Soft to palpation and Tenderness to palpation present (GI) suprapubicly Auscultation: normoactive bowel sounds : General: Yes no CVA tenderness Back/Spine/Pelvis: Back: no CVA tenderness Skin: General skin exam: elasticity normal and turgor normal Neuro: General: oriented to person, oriented to place, oriented to time, patient oriented x3, moves all extremities, no focal motor deficits and CN's II- XI intact bilaterally Cranial nerves: Yes Equal, round and reactive pupils present Cognition (Neuro): normal cognition Extrem: General: Yes full ROM, Yes no pedal edema and Yes no calf tenderness Psych: Mental Status: mental status grossly normal Affect: normal affect Thought process: Normal thought process present Course Course Course Narrative: RME performed by Rosette Norton PA-C. Patient is a 37 year old assigned male at presenting to the emergency department with abdominal pain and pain with urination. Patient states that he was diagnosed with a UTI 2 days ago and given antibiotics but he continues to have pain. Detailed physical exam and review of systems are deferred to the fraud representative. Labs ordered. Patient placed back in the waiting room pending room availability and results. Medical Decision Making Medical Decision Making MDM Narrative: Patient is a 37-year-old male presenting to the emergency department with suprapubic abdominal pain and intermittent dysuria for the past week. On exam patient is awake, A+Ox3, VS WNL, afebrile, normal neurological exam without focal deficits, physical exam findings as above. Given reported symptoms and physical exam findings, initial differential includes UTI/pyelonephritis, STI, urethritis, cystitis, urinary retention. Unlikely appendicitis, diverticulitis. Labs notable for no leukocytosis, no anemia, no significant electrolyte abnormalities, no evidence of DEANNA, LFTs normal. Discussed with patient prophylactic treatment for STIs versus awaiting results and patient states he prefers to wait for results prior to treatment. Will refer patient to Urology for further evaluation of symptoms. Return precautions discussed at bedside. Patient verbalized understanding of and agreement with plan. Differential Diagnosis Differential Diagnoses: The differential diagnosis associated with the presentation includes As per MDM. Lab Data 05/18/23 16:18 05/18/23 16:18 Labs: Lab Results 05/18/23 Range/Units 16:18 WBC 9.3 (4.8-10.8) X10*3/uL RBC 4.68 (4.60-5.80) X10*6/uL Hgb 14.5 (14.0-18.0) g/dl Hct 43.6 (42.0-52.0) % MCV 93.2 (80.0-98.0) fL MCH 31.0 (27.0-33.0) pg MCHC 33.3 (31.0-36.0) g/dl RDW 12.3 (11.0-16.0) % Plt Count 250 (160-400) X10*3/uL MPV 10.7 (9.4-12.4) fL Immature Gran % (Auto) 0.1 (0.0-0.4) % Neut % (Auto) 59.3 (45-73) % Lymph % (Auto) 28.1 (20-40) % Larimer % (Auto) 7.1 (2-11) % Eos % (Auto) 5.0 H (0-4) % Baso % (Auto) 0.4 (0-2) % Lymph # (Auto) 2.6 (1.2-4.9) X10*3/uL [place] # (Auto) 0.7 (0.1-1.2) X10*3/uL Eos # (Auto) 0.5 H (0.0-0.4) X10*3/uL Baso # (Auto) 0.0 (0.0-0.2) X10*3/uL Abs Immat Gran (auto) 0.01 (0.00-0.03) X10*3/uL Absolute Neuts (auto) 5.5 (2.0-8.3) x10*3/uL Absolute Nucleated RBC 0.000 (0.0-0.012) X10*3/uL Nucleated RBC % (auto) 0.0 (0.0-0.2) /100WBC Sodium 140 (135-145) mmol/L Potassium 4.2 (3.3-5.1) mmol/L Chloride 105 (96-108) mmol/L Carbon Dioxide 29 (22-29) mmol/L Anion Gap 10 L (12-20) BUN 9 (9-16) mg/dL Creatinine 1.21 (0.5-1.4) mg/dL Estim Creat Clear Calc 91.7 Estimated GFR > 60 Random Glucose 66 (60-115) mg/dL Calcium 9.4 (8.4-10.2) mg/dL Magnesium 2.3 (1.6-2.6) mg/dL Total Bilirubin 0.4 (0.0-1.0) mg/dL AST 22 (5-37) U/L ALT 21 (0-40) U/L Alkaline Phosphatase 80 (39-117) U/L Total Protein 7.5 (6.5-8.0) g/dL Albumin 4.1 (3.5-5.0) g/dL Lipase 13 (8-78) U/L Urine Color Yellow Urine Appearance Clear Urine pH 5.5 (5.0-9.0) Ur Specific Sawyer 1.015 (1.005-1.025) Urine Protein Negative (Neg-Trace) mg/dL Urine Glucose (UA) Negative (Negative) mg/dL Urine Ketones Negative (Negative) mg/dL Urine Blood Negative (Negative) Urine Nitrite Negative (Negative) Ur Leukocyte Esterase Trace H (Negative) Urine RBC 0-2 (0-2) /HPF Urine WBC 21-50 H (0-5) /HPF Ur Squamous Epith Cells 0-2 (0-2) /HPF Urine Bacteria None Seen (None Seen) Hyaline Casts 0-2 (0-2) /LPF COVID-19 (TERRI) Negative (Negative) COVID-19 Clin Com See Note Discharge Plan Discharge Clinical Impression: Abdominal pain, suprapubic, Dysuria Patient Disposition: Home, Self-Care Instructions: Pelvic Pain in Men (ED), Dysuria (ED) Additional Instructions: You have been evaluated in the emergency department today for abdominal pain and burning with urination. Your evaluation did not show evidence of medical conditions requiring emergent intervention at this time. You were tested for sexually transmitted infections and the results are pending, you will be contacted with any positive results. You are being referred to Urology for further evaluation of your symptoms, please call their office to schedule an appointment. Please schedule an appointment with your primary care physician. Return to the emergency department if you experience worsening or uncontrolled pain, fevers 100.4? F or greater, recurrent vomiting, inability to tolerate food or fluids by mouth, bloody stools or vomit, black or tarry stools, or any other concerning symptoms. Prescriptions: No Action docusate sodium 100 mg capsule 100 mg PO BEDTIME Qty: 30 3RF albuterol sulfate 2.5 mg /3 mL (0.083 %) solution for nebulization 2.5 mg inhalation TID PRN (Reason: bronchospasm) 30 Days Qty: 225 6RF cholecalciferol (vitamin D3) 50 mcg (2,000 unit) capsule 50 mcg PO DAILY 90 Days Qty: 90 1RF Flovent HFA 44 mcg/actuation HFA aerosol inhaler 1 puff inhalation BID 30 Days Qty: 10.6 6RF Rx Instructions: administer with spacer albuterol sulfate 90 mcg/actuation HFA aerosol inhaler 2 puff PO Q6H PRN (Reason: shortness of breath or wheezing) 30 Days Qty: 6.7 6RF oxycodone 10 mg tablet 10 mg PO Q6H PRN (Reason: pain) 30 Days Qty: 120 0RF pantoprazole 40 mg tablet,delayed release (DR/EC) 40 mg PO DAILY 90 Days Qty: 90 0RF ciprofloxacin HCl 500 mg tablet 500 mg PO BID Qty: 14 0RF fluticasone propionate [Flonase Allergy Relief] 50 mcg/actuation spray,suspension 1 spray intranasal BID Qty: 16 0RF Rx Instructions: administer into each nostril cetirizine [Zyrtec] 10 mg tablet 10 mg PO DAILY Qty: 14 0RF cephalexin 500 mg capsule 500 mg PO QID 10 Days Qty: 40 0RF doxycycline hyclate 100 mg tablet 100 mg PO BID Qty: 20 0RF (DME) nebulizers [facility] [place] See Rx Instructions .ROUTE .MEDSUPPLY Qty: 1 0RF Rx Instructions: As directed alprazolam 0.5 mg tablet 0.5 mg PO BID PRN (Reason: anxiety) 30 Days Qty: 60 0RF escitalopram oxalate 10 mg tablet 10 mg PO BEDTIME 90 Days Qty: 90 0RF epinephrine [EpiPen 2-Jovani] 0.3 mg/0.3 mL auto-injector 0.3 mg IM Q10M PRN (Reason: anaphylaxis) 30 Days Qty: 1 3RF Rx Instructions: for 2 doses nicotine 14 mg/24 hr patch 24 hour 1 patch transdermal DAILY 28 Days Qty: 28 0RF bisacodyl [Dulcolax (bisacodyl)] 5 mg tablet,delayed release (DR/EC) 10 mg PO BEDTIME Qty: 90 0RF Referrals: [facility] [place] [Provider Group]
[2023-05-18 16:22] LABS: MANUAL DIFF FLAG NO
[2023-05-18 16:25] LABS: Appearance Urine Clear; Basophils Percent Auto 0.4 % (0-2); Color Urine Yellow; Eosinophils Absolute Auto 0.5 X10*3/uL (0.0-0.4); Glucose Urine UA Negative (Negative); Hematocrit 43.6 % (42.0-52.0); Hemoglobin 14.5 g/dl (14.0-18.0); Imm Gran Abs Auto 0.01 X10*3/uL (0.00-0.03); Imm Gran Pct Auto 0.1 % (0.0-0.4); Leukocyte Esterase Urine Trace (Negative); Lymphocytes Absolute Auto 2.6 X10*3/uL (1.2-4.9); Lymphocytes Percent Auto 28.1 % (20-40); Mean Corpuscular HGB Conc 33.3 g/dl (31.0-36.0); Mean Corpuscular Volume 93.2 fL (80.0-98.0); Mean Platelet Volume 10.7 fL (9.4-12.4); Monocytes Absolute Auto 0.7 X10*3/uL (0.1-1.2); Monocytes Percent Auto 7.1 % (2-11); Neutrophils Absolute Auto 5.5 x10*3/uL (2.0-8.3); Neutrophils Percent Auto 59.3 % (45-73); Nitrite Urine Negative (Negative); PH 5.5 (5.0-9.0); Platelet Count 250 X10*3/uL (160-400); Red Blood Count 4.68 X10*6/uL (4.60-5.80); Red Cell Distribution Width 12.3 % (11.0-16.0); Specific Gravity - Urine 1.015 (1.005-1.025); UMIC TRIGGER UACC YES; Urine Blood Negative (Negative); Urine Ketones Negative (Negative); Urine Protein Negative (Neg-Trace); White Blood Count 9.3 X10*3/uL (4.8-10.8)
[2023-05-18 16:30] LABS: Bacteria Urine None Seen (None Seen); Hyaline Casts Urine 0-2 /LPF (0-2); RBC Urine 0-2 /HPF (0-2); Squamous Epithelial Cell Urine 0-2 /HPF (0-2); UACC Culture Trigger YES; WBC Urine 21-50 /HPF (0-5)
[2023-05-18 16:39] LABS: Alanine Aminotransferase 21 U/L (0-40); Albumin Level 4.1 g/dL (3.5-5.0); Alkaline Phosphatase 80 U/L (39-117); Anion Gap 10 (12-20); Aspartate Amino Transferase 22 U/L (5-37); Bilirubin Total 0.4 mg/dL (0.0-1.0); Blood Urea Nitrogen 9 mg/dL (9-16); Calcium 9.4 mg/dL (8.4-10.2); Carbon Dioxide 29 mmol/L (22-29); Chloride 105 mmol/L (96-108); Creatinine Clr Calc Pharmacy 91.7; Estimated Glomerular Filt Rate > 60; Glucose Random 66 mg/dL (60-115); Lipase 13 U/L (8-78); Magnesium 2.3 mg/dL (1.6-2.6); Potassium 4.2 mmol/L (3.3-5.1); Sodium 140 mmol/L (135-145); Total Protein 7.5 g/dL (6.5-8.0)
[2023-05-18 16:40] LABS: COVID-19 Test Negative (Negative); IDNOW Serial# 08D9AD1C
[2023-05-18 18:37] VITALS: BP 137/63; PULSE 68; RESP 16; TEMP 36.2; O2SAT 98
[2023-05-19 01:55] LABS: CT PCR DETECTED (Not Detect.); NG PCR NOT DETECTED (Not Detect.)
== END 2023-05-18 18:41 | disposition home or self-care (01) ==
PROVIDERS: Physician Assistant Medical; Registered Nurse Emergency; Emergency Provider Emergency Medicine; PCP Internal Medicine
DX: A74.9 Chlamydial infection, unspecified (principal); R10.30 Lower abdominal pain, unspecified; R30.0 Dysuria; Z11.52 Encounter for screening for COVID-19
CPT/HCPCS: 0353U; 80053; 81001; 83690; 83735; 85025; 87086; 87635; 99283; 99284

== ENCOUNTER 2023-08-19 14:52 | Outpatient (AMB) | payer OTHER, SELFPAY ==
[2023-08-19 14:57] VITALS: BP 128/80; BMI 25.9
--- NOTE | 2023-08-19 14:57 | A.OFFPC_ITS ---
Vital Signs 08/19/23 14:57 Height 5 ft 11 in Weight 186 lb BMI 25.9 BP 128/80 Blood Pressure Location Lt brachial Position Sitting Intake Visit Reasons: PE Intake Note: Patient here for a physical exam Lunchroom Food Service Supervisor Required: No Accompanied by: Self / Same As Patient Allergies ibuprofen [From Motrin] Allergy (Intermediate, Verified 08/19/23 15:33) Abdominal Pain seafood Allergy (Intermediate, Verified 08/19/23 15:33) throat swelling tramadol [TRAMADOL] Allergy (Intermediate, Verified 08/19/23 15:33) AGITATION, hallucinations, hallucunations prednisone [PREDNISONE] Allergy (Mild, Verified 08/19/23 15:33) RASH Medication List - Last Reconciled 08/19/23 by Adriana Voss MD albuterol sulfate 90 mcg/actuation 2 puffs PO Q6H PRN 30 days albuterol sulfate 2.5 mg (3 mL) inhalation TID PRN 30 days alprazolam 0.5 mg PO BID PRN 30 days bisacodyl (Dulcolax (bisacodyl)) 10 mg (2 x 5 mg) PO BEDTIME cetirizine (Zyrtec) 10 mg PO DAILY cholecalciferol (vitamin D3) 50 mcg PO DAILY 90 days docusate sodium 100 mg PO BEDTIME epinephrine (EpiPen 2-Jovani) 0.3 mg (0.3 mL) IM Q10M PRN 30 days escitalopram oxalate 10 mg PO BEDTIME 90 days fluticasone furoate 50 mcg/actuation (Arnuity Ellipta) 1 inh inhalation DAILY 30 days fluticasone propionate 50 mcg/actuation (Flonase Allergy Relief) 1 spray intranasal BID nebulizers As directed oxycodone 10 mg PO Q6H PRN 30 days pantoprazole 40 mg PO DAILY 90 days Tobacco use date assessed: 08/19/23 Dental Screening Dental Screen Date: 08/19/23 Did you have a dental visit in the last 12 months?: No Did you have a dental problem in the last 6 months where you did not have access to dental care?: No Was dental information given to patient?: Patient has dentist HPI HPI Comments History of Present Illness Details This is a 37-year-old male that comes for his physical exam. Has paternal aunt that was diagnosed with colon cancer at 50 years old. Denies any acute complaint. Has lumbar degenerative disc disease that has been relieved by opiates and he is aware that can cause addiction and sedation. He had a urinary tract infection with suprapubic pain and was positive with chlamydia in April. Said the suprapubic pain has relieved. ER did call him up but could not find him. I did gave him treatment and he is aware that he needs to repeat chlamydia test 1 month after completing treatment. History of elevated cholesterol that will be repeated. He has a smoker and was advised to quit. [facility] Medical History (Updated 08/19/23 @ 15:46 by Adriana Voss MD) Perineal abscess Right upper quadrant abdominal pain Hypovitaminosis D Overweight Epigastric pain Insomnia Polyarthralgia Anxiety Lumbar degenerative disc disease Asthma Surgical History No pertinent past surgical history Family History Father HTN (hypertension) Mother No problems noted. Paternal Aunt Colon cancer Family/Other FH: mental illness Social History Housing: Apartment Alcohol intake: never Patient Tobacco Use Status: Current everyday Tobacco user Tobacco use type: Cigarette Cigarettes Per Day: 7 Years Smoked: 1 e-Cigarette/Vaping Use: Never Used Second Hand Smoke Exposure: No service: No Current occupational status: employed Current occupational exposures/hazards: No Cognitive needs: No Hearing needs: No Vision needs: No Questionnaire PHQ-9 Over the last 2 weeks, how often have you been bothered by any of the following problems? 1. Little interest or pleasure in doing things: not at all 2. Feeling down, depressed, or hopeless: not at all 3. Trouble falling or staying asleep, or sleeping too much: not at all 4. Feeling tired or having little energy: not at all 5. Poor appetite or overeating: not at all 6. Feeling bad about yourself - or that you are a failure or have let yourself or your family down: not at all 7. Trouble concentrating on things, such as reading the newspaper or watching television: not at all 8. Moving or speaking so slowly that other people could have noticed. Or the opposite - being so fidgety or restless that you have been moving around a lot more than usual: not at all 9. Thoughts that you would be better off or of hurting yourself in some way: not at all Total score: 0 Depression Screening Interpretation: Negative Depression Screening Done: Yes 28986 - PHQ-9 Billing: Yes Source: Developed by Drs. Zachary Ivey, Rhonda Nix, Armen Govea and colleagues, with an educational kia from [employer]. Thrive Questionnaire Date Thrive assessed: 08/19/23 I am a: Patient What is your living situation today?: I have a steady place to live Within the past 12 months, did the food you bought not last and you didn't have the money to get more?: Never true Within the past 12 months, did you worry whether your food would run out before you got money to buy more?: Never true Do you have trouble paying for medicines?: No Do you have trouble getting transportation to medical appointments?: No Do you have trouble paying your heating and electricity bill?: No Do you have trouble taking care of your child, family member or friend?: No Do you have trouble with day-to-day activities such as bathing, preparing meals, shopping, managing finances, etc.?: No Are you currently unemployed and looking for a job?: No Are you interested in more education?: No Please select the resources that you would like help with: None Currently or been in a relationship where the following occur: no concerns rep orted THRIVE Score: 0 AUDIT C Alcohol Use Questionnaire (AUDIT-C) 1. How often do you have a drink containing alcohol?: Never Total Score: 0 Score Reviewed/Action Taken: No SONJA-7 AMB Questionnaire SONJA-7 Date SONJA - 7 assessed: 08/19/23 Feeling nervous, anxious, or on edge: 0 = Not at all Not being able to stop or control worryin = Not at all Worrying too much about different things: 0 = Not at all Trouble relaxin = Not at all Being so restless that it is hard to sit still: 0 = Not at all Becoming easily annoyed or irritable: 0 = Not at all Feeling afraid as if something awful might happen: 0 = Not at all Total SONJA-7 score (0-4 normal; 5-9 mild; 10-14 moderate; 15-21 severe): 0 Source: Developed by Drs. Zachary Ivey, Rhonda Nix, Armen Govea and colleagues, with an educational kia from [employer]. SONJA-7 Assessment Billing SONJA-7 Assessment Tool: SONJA-7 Assessment 58392 Review of Systems Const All systems reviewed & are unremarkable except as noted in HPI and below Eyes Reports no additional complaints, Denies change in vision and Denies other visual disturbances Card Denies chest pain at rest, Denies chest pain with activity, Denies edema, Denies irregular heart rhythm, Denies claudication, Denies dyspnea, Denies dyspnea on exertion, Denies orthopnea, Denies paroxysmal nocturnal dyspnea and Denies slow heart rate Resp Denies cough, Denies dyspnea and Denies dyspnea on exertion Physical exam (Primary Care) Vital Signs: Last Vital Signs BP 128/80 08/19/23 14:57 BMI result Body Mass Index 25.9 Tobacco/Smoking Status: Tobacco use Status Tobacco use date assessed 08/19/23 08/19/23 15:04 Patient Tobacco Use Status Current everyday Tobacco 08/19/23 15:04 Tobacco use type Cigarette 08/19/23 15:04 e-Cigarette/Vaping Use Never Used 08/19/23 15:04 PHQ-9: PHQ-9 Score PHQ-9: Total score 0 08/19/23 15:38 Depression Screening Interpretation: Negative Thrive Assessment: Date of Thrive Assessment Date Thrive assessed 08/19/23 08/19/23 15:04 Currently or been in a relationship where the following occur: no concerns reported Const Orientation/consciousness: patient oriented x3 HENMT Head: Yes normal to inspection, Yes normocephalic and Yes atraumatic Ears: external ears normal Eyes General: appearance normal, both eyes and all related structures Eyelids: Yes eyelids normal Conjunctivae: conjunctivae normal Neck Neck: Yes normal visual inspection and Yes supple Resp Effort & Inspection: normal respiratory effort Auscultation: clear to auscultation bilaterally Cardio Jugular venous distension: no JVD Rate: regular rate Rhythm: regular rhythm Heart sounds: S1 normal heart sound present and S2 normal heart sound present GI Inspection: Yes normal to inspection Palpation (GI): Soft to palpation and nontender Auscultation: normal bowel sounds Skin General skin exam: no rashes or lesions noted Neuro General: patient oriented x3 and no focal motor deficits Extrem General: Yes full ROM Psych Appearance: grossly normal Assessment and Plan Assessment & Plan (1) Physical exam: Code(s): Z00.00 - Encounter for general adult medical examination without abnormal findings Plan: Repeat in a year. Orders: Orders Comprehensive [place]. Panel Fast Today Z00.00 - Encounter for general adult medical examination without abnormal findings CT NG by PCR Today A74.9 - Chlamydial infection, unspecified Lipid Panel Today E78.5 - Hyperlipidemia, unspecified, Z00.00 - Encounter for general adult medical examination without abnormal findings Vitamin D 25-OH Total Today E55.9 - Vitamin D deficiency, unspecified Medications: New azithromycin 1,000 mg (2 x 500 mg) PO ONCE 1 day 2 tabs 0RF A74.9 - Chlamydial infection, unspecified Coding Level of Care Code Est Pt Prev Care 18-39y(72750) Diagnoses Physical exam Z00.00 Additional Codes SONJA-7 Assessment Billing - SONJA-7 Assessment Tool: SONJA-7 Assessment 60553 ([id number]) Time Spent (min) 33
== END 2023-08-19 15:45 | disposition home or self-care (01) ==
PROVIDERS: PCP Internal Medicine; Visit Provider Internal Medicine
DX: Z00.00 Encounter for general adult medical examination without abnormal findings (principal)
CPT/HCPCS: 99395